=== PATIENT | male | born 1945 | race Caucasian/White ===

== ENCOUNTER 2016-08-15 19:41 | Inpatient (IN) | payer MEDICARE ==
[~2016-08-15] VITALS: Ht 167.6 cm; Wt 81.8 kg
[~2016-08-15 19:41] MED LIST: ADDE20XR PO; ASPI81TA82 PO; ATOR80TA41 PO; BUME0.5T PO; COMBTAB PO; DOCU1CAP39 PO; ENAL2.5 PO; ERGO50000 PO; FENO105T3 PO; FENT100D T-DERMAL; GLIP2.5T6 PO; KALETRA200 PO; LAMI250T PO; METO10 PO; PARO10TA PO; PIOG45 PO; TEST200I13 IM; TRAD5TAB PO; VALT1TAB26 PO
[2016-08-15 19:46] VITALS: BP 105/53; PULSE 56; RESP 14; TEMP 97.8
[2016-08-15] MEDS ORDERED: ERGO1CAP10 PO (20:29)
[2016-08-15] MEDS ORDERED: KALETRA200 PO (20:29)
[2016-08-15] MEDS ORDERED: TRAD5TAB PO (20:29)
[2016-08-15] MEDS ORDERED: ASPI81CH3 CHEW (20:29)
[2016-08-15] MEDS ORDERED: EMTR1TAB4 PO (20:29)
[2016-08-15] MEDS ORDERED: DOCU250C PO (20:29)
[2016-08-15] MEDS ORDERED: VALA1TAB PO (20:29)
[2016-08-15] MEDS ORDERED: METO10TA PO (20:29)
[2016-08-15] MEDS ORDERED: ACAR25TA PO (20:29)
[2016-08-15] MEDS ORDERED: PARO1TAB71 PO (20:29)
[2016-08-15] MEDS ORDERED: ATOR1TAB18 PO (20:29)
[2016-08-15] MEDS ORDERED: BUME0.5T PO (20:29)
[2016-08-15] MEDS ORDERED: GLIP5TAB8 PO (20:29)
[2016-08-15] MEDS ORDERED: ENAL5TAB PO (20:29)
[2016-08-15] MEDS ORDERED: PIOG45TA3 PO (20:30)
[2016-08-15] MEDS ORDERED: FURO40TA PO (20:30)
[2016-08-15] MEDS ORDERED: FENT100D T-DERMAL (20:30)
[2016-08-15] MEDS ORDERED: METO2.5T PO (20:30)
[2016-08-15] MEDS ORDERED: CHOL1CAP2 PO (20:30)
[2016-08-15] MEDS ORDERED: SODIUM CHLOR 0.9% 1000 ML INJ 1,000 ML IV ONE (20:45)
--- NOTE | 2016-08-15 20:57 | PD ---
HPI Chief Complaint: Abnormal Results Time Seen by Provider: 20:25 Travel History International Travel<30 days: No Contact w/Intl Traveler<30days: No Traveled to known affect area: No History of Present Illness HPI This 71-year-old male was told to come here because he had abnormal lab work done today. He has a history of HIV. He has an infection on his arm for which she is having surgery on . He has been on multiple antibiotics for just finished yesterday. He's been nauseated and has not been eating well. He also has a history of peripheral edema and is on metolazone. On the he had lab work which showed a BUNs of 35 and creatinine of 1.16. Today his BUNs is 88 with a creatinine of 3.19. He drinks alcohol and smokes cigarettes. His believes his viral load is undetectable PFSH Past Medical History Arthritis: Yes Cancer: No Cardiovascular Problems: No High Cholesterol: Yes Diabetes: No (PATIENT STATES HIS MD TOLD HIM HE IS NOT DIABETIC, BUT TAKES MEDS ) Diminished Hearing: No Endocrine: No Genitourinary: No Hepatitis: Yes (Poss. Hep B) Hiatal Hernia: No Hypertension: Yes Immune Disorder: No Musculoskeletal: Yes (Chronic back pain ) Neurologic: No Psychiatric: No (DENIES) Reproductive: No Respiratory: No Thyroid Disease: No Tetanus Vaccination: Unknown Influenza Vaccination: Yes Past Surgical History Abdominal Surgery: Yes (Mult. hernia repairs ) AICD: No Genitourinary Surgery: Yes (HERNIA REPAIR) Joint Replacement: Yes (Lt. shoulder) Pacemaker: No Social History Alcohol Use: Yes (Scotch daily) Tobacco Use: Yes (3-4 PPD) Substance Use: No Allergies-Medications (Allergen,Severity, Reaction): Coded Allergies: No Known Allergies (Unverified , 08/15/16) Reported Meds & Prescriptions Reported Meds & Active Scripts Active Reported Metolazone 2.5 Mg Tab 2.5 Mg PO DIRECTED Furosemide 40 Mg Tab 40 Mg PO DIRECTED Pioglitazone (Pioglitazone HCl) 45 Mg Tab 45 Mg PO DAILY Fenofibric Acid Dr (Choline Fenofibrate DR) 135 mg Capdr 135 Mg PO DAILY Enalapril (Enalapril Maleate) 5 Mg Tab 5 Mg PO DAILY Atorvastatin (Atorvastatin Calcium) 80 Mg Tab 80 Mg PO HS Vitamin D (Ergocalciferol) 50,000 Unit Cap 50,000 Units PO Q7D Valacyclovir (Valacyclovir HCl) 1 Gm Tab 1,000 Mg PO DAILY Tradjenta (Linagliptin) 5 Mg Tab 5 Mg PO DAILY Paroxetine (Paroxetine HCl) 10 Mg Tab 10 Mg PO DAILY Metoclopramide (Metoclopramide HCl) 10 Mg Tab 10 Mg PO BID Kaletra (Lopinavir/Ritonavir) 200-50 Mg Tab 2 Tab PO Q12HR Fill this 5 day prescription first & begin taking Kaletra 12 hours after the first dose received in the Emergency Department as prescribed. Glipizide 5 Mg Tab 2.5 Mg PO DAILY Take 30 minutes before a meal Docusate Sodium 250 Mg Cap 200 Mg PO DAILY Descovy (Emtricitabine-Tenofovir Alafenamide) 200-25 mg Tab 1 Tab PO DAILY Bumetanide 0.5 Mg Tab 0.5 Mg PO DAILY Aspirin 81 Low Dose (Aspirin) 81 Mg Chew 81 Mg CHEW DAILY Acarbose 25 Mg Tab 25 Mg PO BID Take with first bite of meal. Review of Systems General / Constitutional: No: Fever Eyes: No: Diploplia, Blurred Vision HENT: No: Headaches Cardiovascular: No: Chest Pain or Discomfort Respiratory: No: Cough, Shortness of Breath Gastrointestinal: Positive: Nausea Genitourinary: Positive: Decreased Urinary Output Skin: Positive Rash, Positive Lumps Physical Exam Narrative GENERAL: Chronically ill-appearing male SKIN: Warm and dry. He has hyperpigmentation of the skin below the knees. He has a olecranon bursitis on the left arm HEAD: Atraumatic. Normocephalic. EYES: Pupils equal and round. No scleral icterus. No injection or drainage. ENT: No nasal bleeding or discharge. Mucous membranes pink and moist. NECK: Trachea midline. No JVD. CARDIOVASCULAR: Regular rate and rhythm. No murmur appreciated. RESPIRATORY: No accessory muscle use. Clear to auscultation. Breath sounds equal bilaterally. GASTROINTESTINAL: Abdomen soft, non-tender, nondistended. Hepatic and splenic margins not palpable. MUSCULOSKELETAL: No obvious deformities. No clubbing. No cyanosis. No edema. NEUROLOGICAL: Awake and alert. No obvious cranial nerve deficits. Motor grossly within normal limits. Normal speech. PSYCHIATRIC: Appropriate mood and affect; insight and judgment normal. Data Data Last Documented VS Vital Signs Date Time Temp Pulse Resp B/P Pulse Ox O2 Delivery O2 Flow Rate FiO2 08/15/16 21:15 82 20 134/74 92 Room Air 08/15/16 19:46 97.8 Orders Complete Blood Count With Diff (08/15/16 20:34) Basic Metabolic Panel (Bmp) (08/15/16 20:34) Urinalysis - C+S If Indicated (08/15/16 20:34) Sodium Chlor 0.9% 1000 Ml Inj (Ns 1000 M (08/15/16 20:45) Sodium Chlor 0.9% 1000 Ml Inj (Ns 1000 M (08/15/16 21:30) Potassium Chloride (Kcl) (08/15/16 22:00) Labs Laboratory Tests Test 08/15/16 08/15/16 20:50 21:10 White Blood Count 8.9 TH/MM3 Red Blood Count 4.21 MIL/MM3 Hemoglobin 14.0 GM/DL Hematocrit 42.9 % Mean Corpuscular Volume 102.0 FL Mean Corpuscular Hemoglobin 33.2 PG Mean Corpuscular Hemoglobin 32.5 % Concent Red Cell Distribution Width 15.1 % Platelet Count 187 TH/MM3 Mean Platelet Volume 9.6 FL Neutrophils (%) (Auto) 68.7 % Lymphocytes (%) (Auto) 21.3 % Monocytes (%) (Auto) 7.0 % Eosinophils (%) (Auto) 2.0 % Basophils (%) (Auto) 1.0 % Neutrophils # (Auto) 6.1 TH/MM3 Lymphocytes # (Auto) 1.9 TH/MM3 Monocytes # (Auto) 0.6 TH/MM3 Eosinophils # (Auto) 0.2 TH/MM3 Basophils # (Auto) 0.1 TH/MM3 CBC Comment DIFF FINAL Differential Comment Sodium Level 134 MEQ/L Potassium Level 3.3 MEQ/L Chloride Level 92 MEQ/L Carbon Dioxide Level 33.3 MEQ/L Anion Gap 9 MEQ/L Blood Urea Nitrogen 87 MG/DL Creatinine 2.20 MG/DL Estimat Glomerular Filtration 30 ML/MIN Rate Random Glucose 54 MG/DL Calcium Level 7.9 MG/DL Urine Color YELLOW Urine Turbidity CLEAR Urine pH 6.0 Urine Specific [place] 1.012 Urine Protein NEG mg/dL Urine Glucose (UA) 100 mg/dL Urine Ketones NEG mg/dL Urine Occult Blood NEG Urine Nitrite NEG Urine Bilirubin NEG Urine Leukocyte Esterase NEG Urine RBC 0-2 /hpf Urine WBC 0-2 /hpf Urine Squamous Epithelial 0-5 /hpf Cells Urine Bacteria NONE /hpf Microscopic Urinalysis Comment CULT NOT INDICATED MDM Medical Decision Making Medical Screen Exam Complete: Yes Emergency Medical Condition: Yes Medical Record Reviewed: Yes Differential Diagnosis Differential includes dehydration, acute kidney injury Narrative Course BUNs today's crit 87 with creatinine of 2.2. IV fluids are started. He had acute kidney injury likely etiology is dehydration Diagnosis Primary Impression: Acute kidney injury Admitting Information Admitting Physician Requests: Admit Jaime Liu MD Aug 15, 2016 20:57
[2016-08-15 21:10] LABS: AUTOMATED NEUTROPHIL # 6.1 TH/MM3 (1.8-7.7); BASOPHIL # 0.1 TH/MM3 (0-0.2); EOSINOPHIL # 0.2 TH/MM3 (0-0.4); HEMATOCRIT 42.9 % (39.0-51.0); HEMO FLAGS DIFF FINAL; LYMPH % 21.3 % (9.0-44.0); LYMPHOCYTE # 1.9 TH/MM3 (1.0-4.8); MEAN CORPUSCULAR HEMOGLOBIN 33.2 PG (27.0-34.0); MEAN CORPUSCULAR HGB CONC 32.5 % (32.0-36.0); NEUT % 68.7 % (16.0-70.0); PLATELET COUNT 187 TH/MM3 (150-450); RED BLOOD COUNT 4.21 MIL/MM3 (4.50-5.90); RED CELL DISTRIBUTION WIDTH 15.1 % (11.6-17.2); WHITE BLOOD COUNT 8.9 TH/MM3 (4.0-11.0)
[2016-08-15 21:15] VITALS: BP 134/74; PULSE 82; RESP 20; O2SAT 92
[2016-08-15 21:18] LABS: BLOOD, URINE NEG (NEG); GLUCOSE,URINE 100 mg/dL (NEG); KETONE, URINE NEG (NEG); NITRITE,URINE NEG (NEG)
[2016-08-15 21:20] LABS: URINE COLOR YELLOW (YELLW/STRAW)
[2016-08-15 21:22] LABS: COMMENT (UR) CULT NOT INDICATED; CULTURE IF INDICATED CULT NOT INDICATED; RBC, URINE 0-2 /hpf (0-3); SQUAMOUS EPITHELIAL CELL URINE 0-5 /hpf (0-5); WBC, URINE 0-2 /hpf (0-5)
[2016-08-15] MEDS: SODIUM CHLOR 0.9% 1000 ML INJ 1,000 ML IV SCH (21:40)
[2016-08-15 21:41] LABS: POTASSIUM 3.3 MEQ/L (3.5-5.1)
[2016-08-15 21:44] LABS: BICARBONATE 33.3 MEQ/L (21.0-32.0)
[2016-08-15] MEDS ORDERED: POTASSIUM CHLORIDE 20 MEQ CONTROLLED RELEASE TAB PO ONE (22:00)
[2016-08-15 22:30] VITALS: BP 124/64; PULSE 95; RESP 20; O2SAT 93
[2016-08-15] MEDS ORDERED: SODIUM CHLOR 0.9% 1000 ML INJ 1,000 ML IV SCH ×2 (22:45→22:47)
[2016-08-15] MEDS ORDERED: NALOXONE HCL 0.4 MG/ML AMP IV PRN (23:00)
[2016-08-15] MEDS ORDERED: SODIUM CHLORIDE 0.9% FLUSH 5 ML FLUSH FLUSH PRN (23:00)
[2016-08-15] MEDS ORDERED: PILL SPLITTER OTHER PRN (23:15)
[2016-08-15 23:30] VITALS: BP 113/59; PULSE 87; RESP 18; TEMP 97.9; O2SAT 92
[2016-08-16 01:16] VITALS: BP 117/47; PULSE 77; RESP 18; TEMP 98.9; O2SAT 94
[2016-08-16 04:00] VITALS: BP 126/85; PULSE 86; RESP 18; TEMP 97.4; O2SAT 93
[2016-08-16] MEDS: SODIUM CHLOR 0.9% 1000 ML INJ 1,000 ML IV SCH ×4 (06:01→13:30)
[2016-08-16 06:21] LABS: AUTOMATED NEUTROPHIL # 5.3 TH/MM3 (1.8-7.7); BASOPHIL # 0.1 TH/MM3 (0-0.2); BASOPHIL % 1.2 % (0.0-2.0); EOSINOPHIL # 0.1 TH/MM3 (0-0.4); EOSINOPHIL % 1.8 % (0.0-4.0); HEMO FLAGS DIFF FINAL; LYMPH % 19.8 % (9.0-44.0); LYMPHOCYTE # 1.5 TH/MM3 (1.0-4.8); MEAN CELL VOLUME 102.5 FL (80.0-100.0); MEAN CORPUSCULAR HEMOGLOBIN 34.7 PG (27.0-34.0); MEAN CORPUSCULAR HGB CONC 33.8 % (32.0-36.0); MONO % 8.5 % (0.0-8.0); NEUT % 68.7 % (16.0-70.0); PLATELET COUNT 169 TH/MM3 (150-450); WHITE BLOOD COUNT 7.6 TH/MM3 (4.0-11.0)
[2016-08-16 06:23] LABS: POTASSIUM 3.2 MEQ/L (3.5-5.1)
[2016-08-16 06:28] LABS: BICARBONATE 32.7 MEQ/L (21.0-32.0)
[2016-08-16 08:00] VITALS: BP 139/72; PULSE 101; PULSE 90; RESP 20; TEMP 96.1; TEMP 96.7; O2SAT 95
[2016-08-16] MEDS ORDERED: valACYclovir HCL 500 MG TAB PO SCH (09:00)
[2016-08-16] MEDS ORDERED: SODIUM CHLORIDE 0.9% FLUSH 5 ML FLUSH FLUSH SCH (09:00)
[2016-08-16] MEDS ORDERED: PIOGLITAZONE HCL 45 MG TAB PO SCH (09:00)
[2016-08-16] MEDS ORDERED: LINAGLIPTIN 5 MG PO SCH (09:00)
[2016-08-16] MEDS ORDERED: LOPINAVIR/RITONAVIR 200 MG/50 MG TAB PO SCH (09:00)
[2016-08-16] MEDS ORDERED: EMTRICITABINE 200 MG PO SCH (09:00)
[2016-08-16] MEDS ORDERED: fentaNYL 100 MCG/HR PATCH T-DERMAL SCH (09:00)
[2016-08-16] MEDS ORDERED: METOCLOPRAMIDE HCL 10 MG TAB PO SCH (09:00)
[2016-08-16] MEDS ORDERED: PARoxetine HCL 20 MG TAB PO SCH (09:00)
[2016-08-16] MEDS ORDERED: DOCUSATE SODIUM 200 MG PO SCH (09:00)
[2016-08-16] MEDS ORDERED: FENOFIBRATE 145 MG TAB PO SCH (09:00)
[2016-08-16] MEDS ORDERED: PIOGLITAZONE HCL 30 MG TAB PO SCH (09:00)
[2016-08-16] MEDS ORDERED: DOCUSATE SODIUM 100 MG CAP PO SCH (09:00)
[2016-08-16] MEDS ORDERED: glipiZIDE 5 MG TAB PO SCH (09:00)
[2016-08-16] MEDS ORDERED: TENOFOVIR ALAFENAMIDE 25 MG PO SCH (09:00)
[2016-08-16] MEDS ORDERED: ACARBOSE 25 MG PO SCH (09:00)
[2016-08-16] MEDS ORDERED: ASPIRIN 81 MG CHEW TAB CHEW SCH (09:00)
[2016-08-16 12:00] VITALS: BP 133/70; PULSE 80; RESP 20; TEMP 97.1; O2SAT 96
--- NOTE | 2016-08-16 13:29 | HHI.HP ---
[facility] Primary [facility] Physician Alexi West MD Admission Diagnosis ACUTE KIDNEY INJURY Diagnoses: (1) Acute kidney injury Diagnosis: Principal (2) Elbow wound Diagnosis: Secondary Chief Complaint: Sent in by outside physician for evaluation Travel History International Travel<30 Days: No Contact w/Intl Traveler <30 Da: No Traveled to Known Affected Are: No History of Present Illness 71-year-old male with known history of HIV, chronic right elbow wound who was notified to come to the hospital because abnormal test results. Patient undergoing outpatient management Dr. West's office for his elbow wound. He does have scheduled surgery next in [place]. Patient had blood work done which did show increasing his kidney functions and is recommended that he come to the hospital for evaluation. Patient has been on multiple antibiotics recently to include IV medication to Dr. West's office. Patient does not know the name of the medications at this time. He had recent labwork done and is found to have worsening kidney functions and separately sent to the hospital for evaluation. Upon review of medical records it does appear the patient does have acute renal failure on chronic kidney disease stage III. Patient was recommended admission to hospital with IV hydration. Patient was seen this morning and doing quite well. He denies any complaints. His renal functions have almost returned to normal. Patient is very eager to go home. He denies any abdominal pain, nausea, vomiting, difficulty urinating, diarrhea, constipation. Review of Systems Constitutional: DENIES: Diaphoretic episodes, Fatigue, Fever, Weight gain, Weight loss, Chills, Dizziness, Change in appetite, Night Sweats Eyes: DENIES: Blurred vision, Diplopia, Eye inflammation, Eye pain, Vision loss , Double Vision Ears, nose, mouth, throat: DENIES: Vertigo, Nasal discharge, Throat pain, Ear Pain, Running Nose, Sinus Pain Respiratory: DENIES: Apneas, Cough, Snoring, Wheezing, Hemoptysis, Sputum production, Shortness of breath Cardiovascular: DENIES: Chest pain, Palpitations, Syncope, Dyspnea on Exertion , Lower Extremity Edema, Orthopnea Gastrointestinal: DENIES: Abdominal pain, Black stools, Bloody stools, Constipation, Diarrhea, Nausea, Vomiting, Difficulty Swallowing, Anorexia Neurologic: DENIES: Abnormal gait, Headache, Localized weakness, Paresthesias, Seizures, Speech Problems, Tremor, Poor Balance Psychiatric: DENIES: Anxiety, Confusion, Mood changes, Depression Past Family Social History Past Medical History HIV Chronic right elbow wound Past Surgical History Left shoulder surgery Appendectomy Back surgery Reported Medications Reported Meds & Active Scripts Active Reported Metolazone 2.5 Mg Tab 2.5 Mg PO DIRECTED Furosemide 40 Mg Tab 40 Mg PO DIRECTED Fentanyl Patch 72 HR (Fentanyl) 100 Mcg/Hr Patch 100 Mcg T-DERMAL Q72H Remove old patch when new one placed. Pioglitazone (Pioglitazone HCl) 45 Mg Tab 45 Mg PO DAILY Fenofibric Acid Dr (Choline Fenofibrate DR) 135 mg Capdr 135 Mg PO DAILY Enalapril (Enalapril Maleate) 5 Mg Tab 5 Mg PO DAILY Atorvastatin (Atorvastatin Calcium) 80 Mg Tab 80 Mg PO HS Vitamin D (Ergocalciferol) 50,000 Unit Cap 50,000 Units PO Q7D Valacyclovir (Valacyclovir HCl) 1 Gm Tab 1,000 Mg PO DAILY Tradjenta (Linagliptin) 5 Mg Tab 5 Mg PO DAILY Paroxetine (Paroxetine HCl) 10 Mg Tab 10 Mg PO DAILY Metoclopramide (Metoclopramide HCl) 10 Mg Tab 10 Mg PO BID Kaletra (Lopinavir/Ritonavir) 200-50 Mg Tab 2 Tab PO Q12HR Fill this 5 day prescription first & begin taking Kaletra 12 hours after the first dose received in the Emergency Department as prescribed. Glipizide 5 Mg Tab 2.5 Mg PO DAILY Take 30 minutes before a meal Docusate Sodium 250 Mg Cap 200 Mg PO DAILY Descovy (Emtricitabine-Tenofovir Alafenamide) 200-25 mg Tab 1 Tab PO DAILY Bumetanide 0.5 Mg Tab 0.5 Mg PO DAILY Aspirin 81 Low Dose (Aspirin) 81 Mg Chew 81 Mg CHEW DAILY Acarbose 25 Mg Tab 25 Mg PO BID Take with first bite of meal. Allergies: Coded Allergies: No Known Allergies (Unverified , 08/15/16) Family History Reviewed and unremarkable Social History Patient smokes 2 pack a cigarettes a day since he was 12 years old. He also drinks 3-4 scotch drinks daily. Denies any illicit drugs Physical Exam Vital Signs Vital Signs Date Time Temp Pulse Resp B/P Pulse Ox O2 Delivery O2 Flow Rate FiO2 08/16/16 10:34 20 08/16/16 08:00 96.7 90 20 139/72 95 08/16/16 08:00 96.1 90 20 139/72 95 08/16/16 08:00 101 08/16/16 04:00 97.4 86 18 126/85 93 08/16/16 01:16 98.9 77 18 117/47 94 08/15/16 23:30 97.9 87 18 113/59 92 Room Air 08/15/16 22:30 95 20 124/64 93 Room Air 08/15/16 22:00 20 08/15/16 21:15 82 20 134/74 92 Room Air 08/15/16 19:46 97.8 56 14 105/53 Room Air Physical Exam GENERAL: Well-developed, well-nourished, in no acute distress. alert and orientated HEENT: Head is normocephalic without any lesions or masses noted. Facial features are symmetric. Eyes: Pupils equal round reactive to light. Extraocular muscles are intact. Conjunctivae were clear. Oropharyngeal: Pharynx without any erythema edema. Tongue is midline without deviation. Buccal mucosa is moist without any masses or lesions NECK: Supple without any masses. Trachea midline no deviation. No JVD, no bruits are appreciated CARDIAC: Regular rhythm, regular rate. S1/S2 are heard. No murmurs gallops or rubs. LUNGS: Clear to auscultation bilaterally. No wheeze, rhonchi or rales. No use of accessory muscles on inspiration or expiration. ABDOMEN: Soft, nontender. Nondistended. Bowel sounds heard in all 4 quadrants. No organomegaly or masses. Negative rebound, negative guarding EXTREMITIES: No edema, pulses are equal bilaterally. No cyanosis or clubbing NEUROLOGY: Mood and affect appear appropriate. Cranial nerves II through XII grossly intact. Muscle strength 5/5 in upper and lower extremities bilaterally. Deep tendon reflexes are 2+ in upper and lower extremities bilaterally. RIGHT ELBOW: Pending is noted over the wound. Wound appears to be roughly 2.5 cm open with serosanguineous drainage. Laboratory Laboratory Tests Test 08/15/16 08/15/16 08/16/16 20:50 21:10 05:50 White Blood Count 8.9 7.6 Red Blood Count 4.21 4.00 Hemoglobin 14.0 13.9 Hematocrit 42.9 41.0 Mean Corpuscular Volume 102.0 102.5 Mean Corpuscular Hemoglobin 33.2 34.7 Mean Corpuscular Hemoglobin 32.5 33.8 Concent Red Cell Distribution Width 15.1 15.0 Platelet Count 187 169 Mean Platelet Volume 9.6 9.6 Neutrophils (%) (Auto) 68.7 68.7 Lymphocytes (%) (Auto) 21.3 19.8 Monocytes (%) (Auto) 7.0 8.5 Eosinophils (%) (Auto) 2.0 1.8 Basophils (%) (Auto) 1.0 1.2 Neutrophils # (Auto) 6.1 5.3 Lymphocytes # (Auto) 1.9 1.5 Monocytes # (Auto) 0.6 0.6 Eosinophils # (Auto) 0.2 0.1 Basophils # (Auto) 0.1 0.1 CBC Comment DIFF FINAL DIFF FINAL Differential Comment Sodium Level 134 140 Potassium Level 3.3 3.2 Chloride Level 92 99 Carbon Dioxide Level 33.3 32.7 Anion Gap 9 8 Blood Urea Nitrogen 87 58 Creatinine 2.20 1.30 Estimat Glomerular Filtration 30 54 Rate Random Glucose 54 80 Calcium Level 7.9 7.5 Urine Color YELLOW Urine Turbidity CLEAR Urine pH 6.0 Urine Specific [place] 1.012 Urine Protein NEG Urine Glucose (UA) 100 Urine Ketones NEG Urine Occult Blood NEG Urine Nitrite NEG Urine Bilirubin NEG Urine Leukocyte Esterase NEG Urine RBC 0-2 Urine WBC 0-2 Urine Squamous Epithelial 0-5 Cells Urine Bacteria NONE Microscopic Urinalysis Comment CULT NOT INDICATED Result Diagram: 08/16/16 0550 08/16/16 0550 Assessment and Plan Assessment and Plan Acute renal failure superimposed on chronic kidney disease stage III, resolved Status post IV fluids Monitor renal function Avoid nephrotoxins Right elbow wound Continue outpatient management DVT prevention Sequential compression devices Written by Jeffrey Castle PA-C, acting as scribe for Dr. Cazares on 08/16/16 at 1330. The documentation accurately reflects the work and decisions performed face-to- face by Dr. Cazares on 08/16/16 at 1330 Discharge disposition Discharge home in stable condition Activity: Ad sesar Diet: Healthy heart diet Medications per medication reconciliation Follow-up primary medical doctor one week. Physician Certification 2 Midnight Certification Type: Admission for Inpatient Services Order for Inpatient Services The services are ordered in accordance with Medicare regulations or non- Medicare payer requirements, as applicable. In the case of services not specified as inpatient-only, they are appropriately provided as inpatient services in accordance with the 2-midnight benchmark. Estimated LOS (days): 1 days is the estimated time the patient will need to remain in the hospital, assuming treatment plan goals are met and no additional complications. Post-Hospital Plan: Not yet determined Problem Qualifiers (1) Elbow wound: Qualified Code: S51.009A - Elbow wound, unspecified laterality, initial encounter Jeffrey Castle Aug 16, 2016 13:29
--- NOTE | 2016-08-16 13:30 | HHI.DCPOC ---
Discharge Care Plan Diagnosis: (1) Acute renal failure superimposed on stage 3 chronic kidney disease Goals to Promote Your Health * To prevent worsening of your condition and complications * To maintain your health at the optimal level Directions to Meet Your Goals Take your medications as prescribed Follow your dietary instruction Follow activity as directed Keep your appointments as scheduled Take your immunizations and boosters as scheduled If your symptoms worsen call your PCP, if no PCP go to Urgent Care Center or Emergency Room Smoking is Dangerous to Your Health. Avoid second hand smoke Call the 24-hour hour crisis hotline for domestic abuse at Jeffrey Castle Aug 16, 2016 13:30
[2016-08-16] MEDS ORDERED: ATORVASTATIN 40 MG TAB PO SCH (21:00)
== END 2016-08-16 15:30 | disposition home or self-care (01) | DRG 682 ==
LOC: PHED 19:41 → PHEDA 22:43 → PH3A 08-16 01:00 → PH3B 08-16 05:22
PROVIDERS: ADMIT Family Medicine; ATTEND Family Medicine
DX: N17.9 Acute kidney failure, unspecified (principal); B20 Human immunodeficiency virus [HIV] disease; S51.001A Unspecified open wound of right elbow, initial encounter; X58.XXXA Exposure to other specified factors, initial encounter; I12.9 Hypertensive chronic kidney disease with stage 1 through stage 4 chronic kidney disease, or unspecified chronic kidney disease; N18.3 Chronic kidney disease, stage 3 (moderate); E86.0 Dehydration; Z79.2 Long term (current) use of antibiotics; F17.210 Nicotine dependence, cigarettes, uncomplicated; E78.00 Pure hypercholesterolemia, unspecified; M54.9 Dorsalgia, unspecified; G89.29 Other chronic pain; Z96.612 Presence of left artificial shoulder joint
CPT/HCPCS: 80048; 81001; 82948; 85025; 87641; 96360; 96361; J7030

== ENCOUNTER 2016-11-19 09:54 | Day surgery (SDC) | payer MEDICARE ==
[~2016-11-19 09:54] MED LIST changes: +ACAR25TA PO; -ADDE20XR PO; +ASPI81CH3 CHEW; -ASPI81TA82 PO; +ATOR1TAB18 PO; -ATOR80TA41 PO; -BUME0.5T PO; +CHOL1CAP2 PO; -COMBTAB PO; -DOCU1CAP39 PO; +DOCU250C PO; +EMTR1TAB4 PO; -ENAL2.5 PO; +ENAL5TAB PO; +ERGO1CAP10 PO; -ERGO50000 PO; -FENO105T3 PO; -GLIP2.5T6 PO; +GLIP5TAB8 PO; -LAMI250T PO; -METO10 PO; +METO10TA PO; +METO2.5T PO; -PARO10TA PO; +PARO1TAB71 PO; -PIOG45 PO; +PIOG45TA3 PO; -TEST200I13 IM; +VALA1TAB PO; -VALT1TAB26 PO
[2016-11-19 10:38] VITALS: BP 144/56; PULSE 77; RESP 20; TEMP 97; O2SAT 96
[2016-11-19] MEDS ORDERED: LIDOCAINE HCL 1% PF 30 ML VIAL ONE (15:43)
--- NOTE | 2016-11-19 15:47 | RADRPT ---
EXAM DATE/TIME: 11/19/2016 10:49 [facility] COMPARISON: No previous studies available for comparison. EXTERNAL COMPARISON: [facility], MRI RIGHT ELBOW W/O CONTRAST, Jun 03 2016. [facility], US ARM, RIGHT, [facility] 2016. [facility], MRI RIGHT ELBOW W/O CONTRAST, March 22, 2016. INDICATIONS : Fluid collection, right elbow. MEDICAL HISTORY : Hypertension. Hypercholesterolemia. Arthritis. HIV. Diabetes. SURGICAL HISTORY : Hernia repair. Right elbow surgery. Back surgery. Left shoulder surgery. ENCOUNTER: Initial ACUITY: > 1 yr PAIN SCORE: 0/10 LOCATION: Right arm. FLUID: Total volume of 3 cc of cloudy, red fluid was removed. Fluid was sent to lab for ordered studies. Post procedure scanning reveals no hematoma or other complication. TECHNIQUE: 1. Ultrasound guidance for needle aspiration. 2. Aspiration. The risks, benefits, and alternatives to ultrasound guided aspiration were explained to the patient i n detail including the risk of bleeding and infection. Written and verbal informed consent was obtai janneth. With the patient on the ultrasound table, ultrasound imaging was used to select the most appropriate approach for aspiration. Overlying skin was prepped and draped in the usual sterile fashion and 1% l idocaine was administered. An 18 gauge needle was used to perform aspiration of the posterior elbow f luid collection. Approximately 3 cc of cloudy red fluid was removed. Overall, the fluid collection kirby s significantly decreased in size from the ultrasound performed one month ago. CONCLUSION: Uncomplicated ultrasound guided aspiration of the posterior right elbow fluid collection. The fluid c ollection has overall significantly decreased in size compared to the ultrasound from one month ago. In total 3 cc of fluid was removed and sent to the lab for evaluation. Blaze Hall MD on November 19, 2016 at 15:43 Board Certified Radiologist. This report was verified electronically.
== END 2016-11-19 12:00 | disposition home or self-care (01) ==
LOC: HRAD 09:54 → HRIP 09:59 → HRAD 12:00
PROVIDERS: ATTEND Specialist
DX: R22.31 Localized swelling, mass and lump, right upper limb (principal)
CPT/HCPCS: 10160; 76942; 87015; 87070; 87102; 87116; 87205; 87206

== ENCOUNTER → 2017-01-17 | Outpatient (CLI) | payer MEDICARE ==
--- NOTE | 2017-01-17 16:30 | EKG ---
Date Performed: 01/17/2017 Time Performed: 08:49:57 PTAGE: 71 years EKG: Sinus rhythm WITH FIRST DEGREE AV BLOCK MODERATE ST DEPRESSION ABNORMAL ECG PREVIOUS TRACING : 07/11/2015 08.40 Compared to prior tracing no significant change DOCTOR: Justin Anderson Interpretating Date/Time 01/17/2017 16:27:51
== END ==
LOC: HCAV 08:42
PROVIDERS: ATTEND Specialist
DX: R01.1 Cardiac murmur, unspecified (principal); I25.10 Atherosclerotic heart disease of native coronary artery without angina pectoris
CPT/HCPCS: 93005

== ENCOUNTER → 2017-06-12 | Outpatient (CLI) | payer MEDICARE ==
[~2017-06-12] MED LIST changes: +ASPI1CHW4 CHEW; -ASPI81CH3 CHEW; -ATOR1TAB18 PO; +ATOR80TA45 PO; -DOCU250C PO; +DOCU250C7 PO; +PARO10TA3 PO; -PARO1TAB71 PO; -PIOG45TA3 PO; +PIOG45TA5 PO
[2017-06-12 11:50] LABS: BLOOD GAS BASE EXCESS 3.1 mmol/L (-2-2); BLOOD GAS CARBOXYHEMOGLOBIN 5.3 % (0-4); BLOOD GAS HCO3 28 mmol/L (22-26); BLOOD GAS METHEMOGLOBIN 1.2 % (0-2); BLOOD GAS O2 HGB SATURATION 88 % (90-100); BLOOD GAS OXYGEN CONTENT 16.9 Vol % (12.0-20.0); BLOOD GAS PCO2 46 mmHg (38-42); BLOOD GAS PO2 77 mmHg (61-120); BLOOD GAS TOTAL HGB 13.6 G/DL (12.0-16.0); TEMP CORR TO 98.6
[2017-06-12 11:52] LABS: CRITICAL VALUE YES; DRAW SITE RT RADIAL; NUMBER OF ARTERIAL PUNCTURES 1; OXYGEN DEVICE RA; STAT NO; ULNAR PULSE PRESENT
== END ==
LOC: HRSP 10:51
PROVIDERS: ATTEND Specialist
DX: J44.9 Chronic obstructive pulmonary disease, unspecified (principal)
CPT/HCPCS: 36600; 82805